=== PATIENT | male | born 1990 | race Caucasian/White ===

== ENCOUNTER 2019-01-05 17:39 | Inpatient (IN) | payer MEDICAID ==
[~2019-01-05] VITALS: Ht 167.6 cm; Wt 77.1 kg
[2019-01-05 17:51] VITALS: Ht 167.6 cm; Wt 77.1 kg
[2019-01-05 19:11] LABS: CALCIUM 9.7 mg/dL (8.5-10.1); CARBON DIOXIDE 25.2 mmol/L (21-32); CHLORIDE SERUM 99 mmol/L (98-107); CREATININE SERUM 0.9 mg/dL (0.7-1.3); GFR1 > 60 mL/min; GLUCOSE SERUM 107 mg/dL (74-106); POTASSIUM SERUM 3.8 mmol/L (3.5-5.1); SODIUM SERUM 139 mmol/L (136-145)
[2019-01-05 19:16] LABS: PLATELET COUNT 286 x10^3mcL (130-400); RED CELL DISTRIBUTION WIDTH 12.4 % (11.5-14.5)
[2019-01-05 19:17] LABS: ALBUMIN 4.4 g/dL (3.4-5.0); ALKALINE PHOSPHATASE 35 U/L (46-116); ALT/SGPT 235 U/L (16-63); AST/SGOT 222 U/L (15-37); BILIRUBIN TOTAL 0.82 mg/dL (0.20-1.00)
[2019-01-05 19:18] LABS: TOTAL PROTEIN, SERUM 8.6 g/dL (6.4-8.2)
[2019-01-05 19:25] LABS: BASOPHIL % 0 % (0-2)
[2019-01-05 19:46] LABS: LIPASE 10688 IU/L (73-393)
[2019-01-05 20:56] LABS: CHOLESTEROL/HDL RATIO 5.9
[2019-01-05 22:02] VITALS: BP 152/102
[2019-01-05 22:08] LABS: microscopic required? YES; urine erythrocyte NEGATIVE (NEGATIVE)
[2019-01-05 22:20] LABS: AMPHETAMINE QUAL UR NONE DETECTED (See below)
[2019-01-06 05:00] VITALS: BP 148/89
[2019-01-06 06:17] LABS: PLATELET COUNT 259 x10^3mcL (130-400); RED CELL DISTRIBUTION WIDTH 12.6 % (11.5-14.5)
[2019-01-06 06:19] LABS: BASOPHIL % 0 % (0-2)
[2019-01-06 06:21] LABS: CALCIUM 8.4 mg/dL (8.5-10.1); CARBON DIOXIDE 25.4 mmol/L (21-32); CHLORIDE SERUM 102 mmol/L (98-107); CREATININE SERUM 0.7 mg/dL (0.7-1.3); GFR1 > 60 mL/min; GLUCOSE SERUM 114 mg/dL (74-106); PHOSPHOROUS 4.5 mg/dL (2.5-4.9); POTASSIUM SERUM 3.8 mmol/L (3.5-5.1); SODIUM SERUM 138 mmol/L (136-145)
[2019-01-06 07:51] VITALS: BP 136/85
[2019-01-06 11:43] VITALS: BP 131/83
[2019-01-06 16:31] VITALS: BP 127/83
[2019-01-06 19:58] VITALS: BP 127/72
[2019-01-07 04:45] VITALS: BP 127/68
[2019-01-07 05:59] LABS: BASOPHIL % 0.2 % (0-2); PLATELET COUNT 250 x10^3mcL (130-400); RED CELL DISTRIBUTION WIDTH 12.3 % (11.5-14.5)
[2019-01-07 06:18] LABS: CALCIUM 7.9 mg/dL (8.5-10.1); CARBON DIOXIDE 23.8 mmol/L (21-32); CHLORIDE SERUM 103 mmol/L (98-107); CREATININE SERUM 0.8 mg/dL (0.7-1.3); GFR1 > 60 mL/min; GLUCOSE SERUM 80 mg/dL (74-106); MAGNESIUM 2.2 mg/dL (1.8-2.4); PHOSPHOROUS 3.1 mg/dL (2.5-4.9); POTASSIUM SERUM 3.5 mmol/L (3.5-5.1); SODIUM SERUM 138 mmol/L (136-145)
[2019-01-07 07:19] LABS: LIPASE 2964 IU/L (73-393)
[2019-01-07 08:59] VITALS: BP 124/73
[2019-01-07 16:32] VITALS: BP 131/74
[2019-01-07 20:38] VITALS: BP 133/75
[2019-01-08 05:00] VITALS: BP 121/81
[2019-01-08 08:40] VITALS: BP 129/79
[2019-01-08 16:24] VITALS: BP 126/79; BP 129/71
[2019-01-08 20:13] VITALS: BP 126/77
[2019-01-09 05:00] VITALS: BP 130/78
[2019-01-09 07:26] VITALS: BP 130/86
[2019-01-09 16:06] VITALS: BP 132/85
[2019-01-09 20:10] VITALS: BP 139/94
[2019-01-10 03:55] VITALS: BP 120/67
[2019-01-10 07:58] VITALS: BP 126/76
[2019-01-10 11:26] VITALS: BP 126/76
[2019-01-10 11:57] VITALS: BP 128/85
== END 2019-01-10 13:22 | disposition home or self-care (01) | DRG 282 ==
LOC: ED 17:39 → MU 20:16
PROVIDERS: Emergency Medicine; Internal Medicine; ADMIT Family Medicine
DX: K85.90 Acute pancreatitis without necrosis or infection, unspecified (principal); R65.11 Systemic inflammatory response syndrome (SIRS) of non-infectious origin with acute organ dysfunction; K86.1 Other chronic pancreatitis; K86.81 Exocrine pancreatic insufficiency; E78.5 Hyperlipidemia, unspecified; R74.0 Nonspecific elevation of levels of transaminase and lactic acid dehydrogenase [LDH]; Z68.29 Body mass index [BMI] 29.0-29.9, adult
CPT/HCPCS: 90658; 90732; G0378; G0480; J1885; J2270; J2405; J3010; J7030; Q0092